=== PATIENT | female | born 1995 | race Caucasian/White ===

== ENCOUNTER 2023-12-26 13:38 | Outpatient (CLI) | payer OTHER | END 2023-12-26 13:40 | disposition home or self-care (01) | LOC: PRENATAL 13:38 | PROVIDERS: ATTEND Obstetrics & Gynecology Maternal & Fetal Medicine | DX: O35.9XX0 Maternal care for (suspected) fetal abnormality and damage, unspecified, not applicable or unspecified (principal); O35.3XX0 Maternal care for (suspected) damage to fetus from viral disease in mother, not applicable or unspecified; O44.02 Complete placenta previa NOS or without hemorrhage, second trimester; O34.219 Maternal care for unspecified type scar from previous cesarean delivery; Z3A.21 21 weeks gestation of pregnancy ==

== ENCOUNTER → 2024-02-19 | Emergency (ER) | payer OTHER ==
[~2024-02-19] VITALS: Ht 162.6 cm; Wt 133.8 kg
[~2024-02-19] MED LIST: PRENA1 TRUE CO1 EACH; SPIRIVA RESPIMAT4 GM IH; WIXELA 100-501 EACH IH
[2024-02-19 12:24] VITALS: BP 107/63; O2SAT 97
== END | disposition left against medical advice (07) ==
LOC: ER 12:04
DX: Z53.21 Procedure and treatment not carried out due to patient leaving prior to being seen by health care provider (principal)

== ENCOUNTER → 2024-03-30 13:15 | Outpatient (CLI) | payer OTHER | END | disposition home or self-care (01) | LOC: PRENATAL 13:15 | PROVIDERS: ATTEND Obstetrics & Gynecology Maternal & Fetal Medicine | DX: O26.849 Uterine size-date discrepancy, unspecified trimester (principal); O36.8199 Decreased fetal movements, unspecified trimester, other fetus; O34.219 Maternal care for unspecified type scar from previous cesarean delivery; O99.210 Obesity complicating pregnancy, unspecified trimester; Z3A.35 35 weeks gestation of pregnancy ==

== ENCOUNTER 2024-04-21 21:43 | Outpatient (CLI) | payer OTHER ==
[2024-04-21 20:39] VITALS: BP 120/75
[2024-04-21] MEDS ORDERED: RINGERS SOLUTION,LACTATED 1,000 ML IV SCH (22:30)
[2024-04-21 23:16] LABS: HEMATOCRIT 34.5 % (36.0-45.00); HEMOGLOBIN 11.9 g/dL (12.0-15.00); MEAN CELL VOLUME 84.8 fL (80.00-100.00); MEAN CORPUSCULAR HEMOGLOBIN 29.2 pg (27.00-32.0); MEAN CORPUSCULAR HGB CONC 34.4 g/dl (32.0-36.0); RED BLOOD COUNT 4.06 M/uL (4.00-6.00); RED CELL DISTRIBUTION WIDTH 14.8 % (11.5-14.5)
[2024-04-21 23:19] LABS: PH,URINE 6.5 (5.0-8.0); URINE APPEARANCE Clear; URINE BILIRRUBIN Negative (NEGATIVE); URINE BLOOD Negative; URINE COLOR Yellow; URINE GLUCOSE Negative (NEGATIVE); URINE KETONE 15 (NEGATIVE); URINE LEUKOCYTE Negative; URINE NITRATE Negative; URINE PROTEIN Negative (NEGATIVE); URINE UROBILINOGEN 0.2 E.U./dl
[2024-04-21 23:24] LABS: URINE BACTERIA 525.3 uL (0.0-1933); URINE EPITHELIAL CELLS 85.3 uL (0.0-38.8); URINE RBC 4.2 uL (0.0-20.8); URINE WBC 15.1 uL (0.0-23.2)
[2024-04-21 23:30] LABS: URINE CAST 0.15 uL (0.0-1.40)
[2024-04-21 23:30] LABS: PLATELET COUNT 119 K/uL (150-450)
[2024-04-21 23:36] LABS: ALBUMIN 2.7 gm/dL (3.4-5.0); BILIRUBIN TOTAL 0.43 mg/dL (0.3-1.2); CALCIUM 8.8 mg/dL (8.5-10.1); CREATININE SERUM 0.48 mg/dL (0.55-1.02); GFR 151.85; GLOBULINA 3.2 G/DL (2.4-3.5); POTASSIUM 3.66 mEq/L (3.5-5.1); TOTAL PROTEIN 5.9 gm/dL (6.4-8.2); URIC ACID 2.9 mg/dL (2.5-7.5)
[2024-04-21 23:45] LABS: INR 0.99; PARTIAL THROMBOPLASTIN TIME 30.5 SECONDS (22.0-34.0); PROTHROMBIN TIME 10.8 SECONDS (9.0-11.5)
[2024-04-22] MEDS ORDERED: FAMOTIDINE/PF 20 MG/2 ML VIAL IV STA (01:12)
[2024-04-22 04:00] VITALS: BP 118/69
[2024-04-22 06:36] LABS: HEMOGLOBIN 11.9 g/dL (12.0-15.00); MEAN CORPUSCULAR HEMOGLOBIN 29.4 pg (27.00-32.0); RED BLOOD COUNT 4.04 M/uL (4.00-6.00); RED CELL DISTRIBUTION WIDTH 15.3 % (11.5-14.5)
[2024-04-22 07:04] LABS: ALBUMIN 2.6 gm/dL (3.4-5.0); BILIRUBIN TOTAL 0.66 mg/dL (0.3-1.2); CALCIUM 8.8 mg/dL (8.5-10.1); CREATININE SERUM 0.42 mg/dL (0.55-1.02); GFR 177.15; GLOBULINA 3.3 G/DL (2.4-3.5); POTASSIUM 3.73 mEq/L (3.5-5.1); TOTAL PROTEIN 5.9 gm/dL (6.4-8.2)
[2024-04-22 07:11] LABS: PLATELET COUNT 112 K/uL (150-450)
[2024-04-22 07:18] VITALS: BP 105/66; O2SAT 99
[2024-04-22 11:37] VITALS: BP 123/75; O2SAT 99
[2024-04-22 13:18] VITALS: BP 123/75
== END 2024-04-22 13:58 | disposition home or self-care (01) ==
LOC: OBS/DEL 21:43
PROVIDERS: Obstetrics & Gynecology; ATTEND Obstetrics & Gynecology
DX: O14.03 Mild to moderate pre-eclampsia, third trimester (principal); Z3A.37 37 weeks gestation of pregnancy

== ENCOUNTER 2024-04-27 08:15 | Inpatient (IN) | payer OTHER ==
[~2024-04-27] VITALS: Ht 162.6 cm; Wt 134.3 kg
[2024-04-27 10:12] LABS: RH POSITIVE
[2024-05-04 11:37] VITALS: BP 121/74
[2024-05-04 11:47] VITALS: BP 121/74
[2024-05-04] MEDS ORDERED: RINGERS SOLUTION,LACTATED 1,000 ML IV SCH (13:30)
[2024-05-04 14:10] LABS: PH,URINE 6.5 (5.0-8.0); URINE APPEARANCE Clear; URINE BILIRRUBIN Negative (NEGATIVE); URINE BLOOD Negative; URINE COLOR Yellow; URINE GLUCOSE Negative (NEGATIVE); URINE KETONE 15 (NEGATIVE); URINE LEUKOCYTE Negative; URINE NITRATE Negative; URINE PROTEIN Negative (NEGATIVE)
[2024-05-04 14:11] LABS: HEMATOCRIT 34.8 % (36.0-45.00); HEMOGLOBIN 11.7 g/dL (12.0-15.00); MEAN CORPUSCULAR HEMOGLOBIN 28.6 pg (27.00-32.0); MEAN CORPUSCULAR HGB CONC 33.7 g/dl (32.0-36.0); RED CELL DISTRIBUTION WIDTH 14.8 % (11.5-14.5)
[2024-05-04 14:14] LABS: URINE BACTERIA 192.7 uL (0.0-1933); URINE EPITHELIAL CELLS 15.8 uL (0.0-38.8); URINE RBC 2.2 uL (0.0-20.8); URINE WBC 5.5 uL (0.0-23.2)
[2024-05-04 14:38] LABS: PLATELET COUNT 116 K/uL (150-450)
[2024-05-04 14:51] LABS: ALBUMIN 2.7 gm/dL (3.4-5.0); BILIRUBIN TOTAL 0.42 mg/dL (0.3-1.2); CALCIUM 9.1 mg/dL (8.5-10.1); CREATININE SERUM 0.45 mg/dL (0.55-1.02); GFR 163.6; GLOBULINA 3.1 G/DL (2.4-3.5); INR 0.99; PARTIAL THROMBOPLASTIN TIME 30.4 SECONDS (22.0-34.0); POTASSIUM 4.06 mEq/L (3.5-5.1); PROTHROMBIN TIME 10.8 SECONDS (9.0-11.5); TOTAL PROTEIN 5.8 gm/dL (6.4-8.2)
[2024-05-04] MEDS ORDERED: CEFAZOLIN SODIUM 1,000 MG VIAL IV SCH (15:15)
[2024-05-04 15:24] VITALS: BP 119/65
[2024-05-04] MEDS ORDERED: ONDANSETRON HCL 2 MG/ML VIAL IV PRN (18:45)
[2024-05-04] MEDS ORDERED: MORPHINE SULFATE 4 MG/ML CARTRIDGE IV PRN (18:45)
[2024-05-04] MEDS ORDERED: OXYTOCIN 1,000 ML IV SCH (19:15)
[2024-05-04] MEDS ORDERED: METOCLOPRAMIDE HCL 5 MG/ML VIAL IV SCH (19:15)
[2024-05-04] MEDS ORDERED: MORPHINE SULFATE 4 MG/ML VIAL IV ONE (19:25)
[2024-05-04] MEDS ORDERED: SENNOSIDES 1 TAB TABLET PO SCH (21:00)
[2024-05-04] MEDS ORDERED: ERYTHROMYCIN BASE OPHT 1GM EACH TUBE OP ONE (21:00)
[2024-05-04] MEDS ORDERED: OXYTOCIN 10 UNITS/ML VIAL IV ONE (21:00)
[2024-05-04] MEDS ORDERED: SIMETHICONE 125 MG CAPSULE PO SCH (21:00)
[2024-05-05] MEDS ORDERED: KETOROLAC TROMETHAMINE 30 MG VIAL IV SCH
[2024-05-05 01:05] VITALS: BP 112/68
[2024-05-05] MEDS ORDERED: ACETAMINOPHEN 325 MG TABLET PO SCH (06:00)
[2024-05-05 06:42] LABS: HEMATOCRIT 33.3 % (36.0-45.00); HEMOGLOBIN 11.2 g/dL (12.0-15.00); MEAN CELL VOLUME 85.1 fL (80.00-100.00); MEAN CORPUSCULAR HEMOGLOBIN 28.7 pg (27.00-32.0); MEAN CORPUSCULAR HGB CONC 33.7 g/dl (32.0-36.0); RED BLOOD COUNT 3.91 M/uL (4.00-6.00); RED CELL DISTRIBUTION WIDTH 14.7 % (11.5-14.5)
[2024-05-05 06:51] LABS: PLATELET COUNT 115 K/uL (150-450)
[2024-05-05] MEDS ORDERED: ACETAMINOPHEN 500 MG GEL..CAP PO SCH (08:00)
[2024-05-05 08:01] VITALS: BP 124/71
[2024-05-05] MEDS ORDERED: GABAPENTIN 300 MG CAPSULE PO SCH (09:00)
[2024-05-05] MEDS ORDERED: IBUprofen 800 MG TABLET PO SCH (09:00)
[2024-05-05 12:59] VITALS: BP 115/71
[2024-05-05] MEDS ORDERED: OxyCODONE HCL/APAP UD (PERCOCET) PO PRN (13:30)
[2024-05-05 16:54] VITALS: BP 100/67
[2024-05-06] VITALS: BP 119/78
[2024-05-06 07:47] VITALS: BP 104/71
[2024-05-06 16:04] VITALS: BP 121/80
[2024-05-07] VITALS: BP 116/73
[2024-05-07 08:38] VITALS: BP 117/78
== END 2024-05-07 11:40 | disposition home or self-care (01) | DRG 785 ==
LOC: OB/GYN 05-04 07:00 → LDR 05-04 12:24 → OB/GYN 05-04 19:08
PROVIDERS: ADMIT Obstetrics & Gynecology; ATTEND Obstetrics & Gynecology
PROC: 0UB70ZZ Excision of Bilateral Fallopian Tubes, Open Approach (ICD-10-PCS; 2024-05-04)
PROC: 4A1HXCZ Monitoring of Products of Conception, Cardiac Rate, External Approach (ICD-10-PCS; 2024-05-04)
PROC: 10D00Z1 Extraction of Products of Conception, Low, Open Approach (ICD-10-PCS; principal; 2024-05-04 07:00)
DX: O34.211 Maternal care for low transverse scar from previous cesarean delivery (principal); O36.63X0 Maternal care for excessive fetal growth, third trimester, not applicable or unspecified; Z3A.39 39 weeks gestation of pregnancy; Z30.2 Encounter for sterilization; Z20.822 Contact with and (suspected) exposure to COVID-19; Z37.0 Single live birth